=== PATIENT | male | born 2000 | race Caucasian/White ===

== ENCOUNTER 2025-05-14 13:42 | Emergency (ER) | payer MEDICAID ==
[~2025-05-14] VITALS: Ht 162.6 cm; Wt 63.5 kg
[2025-05-14 14:11] VITALS: TEMP 36.8; O2SAT 98
[2025-05-14 16:24] LABS: BASOPHILS % 0.8 % (0.0-2.0); EOSINOPHILS % 0.2 % (0.0-5.0); HEMATOCRIT. 43.7 % (42.0-52.0); HEMOGLOBIN. 15.0 g/dL (14.0-18.0); LYMPHOCYTES % 22.7 % (20.0-50.0); MEAN PLATELET VOLUME 7.6 fl (7.4-10.4); MONOCYTES % 8.7 % (2.0-8.0); NEUTROPHILS % 67.6 % (40.0-76.0); PLATELET 260 x1000/uL (130-400); RED BLOOD CELL COUNT 4.98 mill/uL (4.7-6.1); RED CELL DISTRIBUTION WIDTH 13.1 % (11.6-14.6)
[2025-05-14 16:40] LABS: CREATININE 1.1 mg/dL (0.6-1.3); UREA NITROGEN BLOOD 6 mg/dL (9-23)
[2025-05-14] MEDS: SODIUM CHLORIDE 0.9% 1,000 ML IV ONE (16:46)
[2025-05-14] MEDS: ACETAMINOPHEN 500MG TABLET PO ONE (16:47)
[2025-05-14] MEDS: ONDANSETRON HCL 4MG/2ML INJ IV ONE (16:47)
[2025-05-14] MEDS ORDERED: CYCL10TA21 MT (17:31)
[2025-05-14 17:45] VITALS: BP 127/85; PULSE 67; RESP 12; O2SAT 100
== END 2025-05-14 17:52 | disposition home or self-care (01) ==
LOC: ER 13:42
DX: S01.01XA Laceration without foreign body of scalp, initial encounter (principal); Z98.890 Other specified postprocedural states; W18.2XXA Fall in (into) shower or empty bathtub, initial encounter; Y93.89 Activity, other specified; Y92.89 Other specified places as the place of occurrence of the external cause; Y99.8 Other external cause status
CPT/HCPCS: 99285; 96374; 70450; 96361; 80048; 85025; 36415; J2405; J7030